=== PATIENT | male | born 1970 | race Caucasian/White ===

== ENCOUNTER 2017-12-19 07:05 | Day surgery (SDC) | payer OTHER ==
[~2017-12-19] VITALS: Ht 182.9 cm; Wt 88.5 kg
--- NOTE | ~2017-12-19 | O ---
[facility] [place] [address] OPERATIVE REPORT Name: BURTON THOMAS Room #: DEP [facility]..#: [id number] Admission: 12/19/17 Attend Phys: Victorino Chand MD Discharge: 12/19/17 Date of : 70 Report #: [id number] THIS REPORT FOR: //name// CC: Kervin Chand DATE OF SERVICE: 12/19/2017 PATIENT OF: Dr. Victorino Chand, Dr. Kervin Hopkins, and Dr. [place] Velasquez. PREOPERATIVE DIAGNOSIS: Right inguinal hernia. POSTOPERATIVE DIAGNOSIS: Right inguinal hernia with right cord lipoma. PROCEDURE: Right inguinal hernia repair with Prolene hernia system mesh and excision of right cord lipoma. SURGEON: Victorino Chand MD ANESTHESIA: General. DESCRIPTION OF PROCEDURE: The patient was brought to the operating room and placed on operative table in the supine position. Sequential compression devices were in place for DVT prophylaxis. There was no indication for preoperative antibiotics. The patient underwent a general endotracheal anesthesia and the right inguinal area was prepped and draped in a sterile fashion. Skin and subcutaneous tissue were then infiltrated with 0.5% Marcaine. Right inguinal skin incision was then performed using #10 scalpel blade. Hemostasis obtained using electrocautery. Dissection was carried down through the subcutaneous tissue and the Ángela's fascia using the electrocautery. The external oblique fascia was then identified, incised with a knife and opened with the Metzenbaum scissors. The ilioinguinal nerve was identified, dissected free, injected with the local and preserved. The cord was then elevated and held into place with a Eolia drain. Cremasteric muscle fibers were then split in the direction of their fibers using a clamp and electrocautery. A cord lipoma was identified, dissected free, excised and sent as specimen to pathology. There was no evidence of any indirect inguinal hernia sac. The floor was then inspected and there was a small to moderate size direct inguinal hernia defect. The hernia sac was then incised just above the level of floor using the electrocautery and then reduced back through the floor. An extended Prolene hernia system mesh was then inserted through the floor and the underlay patch was then deployed into the preperitoneal space. The floor was then tightened around the connector using a running 2-0 Prolene two layer shouldice repair. The overlay patch was then deployed in the inguinal canal and the mesh [address] [address] OPERATIVE REPORT Name: BURTON THOMAS Room #: DEP [facility].#: [id number] Admission: 12/19/17 Attend Phys: Victorino Chand MD Discharge: 12/19/17 Date of : 70 Report #: [id number] was secured at the pubic tubercle using the same running 2-0 Prolene suture. The mesh was then secured superiorly and at the connector using simple interrupted 2-0 Vicryl suture and the mesh was then split, wrapped around the cord, secured to the inguinal ligament with simple interrupted 2-0 Vicryl suture. The cord and the ilioinguinal nerve were then returned to the canal intact. The external oblique fascia was then closed using running 2-0 Vicryl suture. Ángela's fascia was then reapproximated using 3 simple interrupted 2-0 chromic sutures and the skin then closed with a running 4-0 subcuticular Vicryl stitch. The wound was then dressed with Mastisol, 1/2-inch Steri-Strips cut in half, Telfa, 4 x 4 gauze, sponge and tape. The patient was then awakened from the general anesthesia and taken to recovery room in good condition. Estimated blood loss was less than 10 mL and the patient tolerated the procedure well. All sponge, lap and instrument counts correct times 2. <ELECTRONICALLY SIGNED> By: Victorino Chand MD 12/24/17 1011 [id number] [id number] Victorino Chand MD /nt
--- NOTE | ~2017-12-19 | S ---
[facility] [address] [place] [address] SURGICAL PATH RPT PROCEDURE Name: BURTON THOMAS Room #: DEP [facility]#: [id number] Admission: 12/19/17 Date of : 70 Discharge: 12/19/17 Report #: [id number] Path Case #: [id number] PATHOLOGY REPORT DRAFT COLLECTION DATE: 12/19/2017 RECEIVED DATE: 12/19/2017 SPECIMEN(S) RECEIVED: A.Right cord lipoma
[~2017-12-19 07:05] MED LIST: CYMBALTA60 MG PO; VIIBRYD40 MG PO
[2017-12-19 13:21] VITALS: BP 155/98
[2017-12-19] MEDS ORDERED: HYDROCODONE-AP1 EAC6 PO (14:10)
[2017-12-19 15:59] VITALS: BP 155/98
== END 2017-12-19 16:55 | disposition home or self-care (01) ==
LOC: OR 07:05 → TBA 07:05 → OR 14:36
DX: K40.90 Unilateral inguinal hernia, without obstruction or gangrene, not specified as recurrent (principal); D17.6 Benign lipomatous neoplasm of spermatic cord; F32.9 Major depressive disorder, single episode, unspecified; F41.9 Anxiety disorder, unspecified; Z98.890 Other specified postprocedural states; Z79.891 Long term (current) use of opiate analgesic
CPT/HCPCS: 50010; 50101; 50386; 50417; 54111; 56524; 56525; 56526; 56528; 62110; 62900; 70005

== ENCOUNTER → 2020-05-19 | Outpatient (CLI) | payer OTHER ==
[~2020-05-19] MED LIST changes: +ALPRAZOLAM 0.50.5 M1 PO; +HYDROCODONE-AP1 EAC6 PO; +LISINOPRIL20 MG PO
== END ==
LOC: LAB 08:59
PROVIDERS: ATTEND Surgery
DX: Z01.812 Encounter for preprocedural laboratory examination (principal); Z20.828 Contact with and (suspected) exposure to other viral communicable diseases

== ENCOUNTER 2020-05-24 06:02 | Day surgery (SDC) | payer OTHER ==
[~2020-05-24] VITALS: Ht 182.9 cm; Wt 88.5 kg
[2020-05-24 06:50] VITALS: BP 130/91
--- NOTE | 2020-05-24 09:32 | H ---
[facility] [place] [address] HISTORY AND PHYSICAL Name: BURTON THOMAS Room #: 150-1 [facility]..#: [id number] Admission: 05/24/20 Attend Phys: Victorino Chand MD Discharge: Date of : 70 Report #: [id number] THIS REPORT FOR: cc: Kervin Hopkins Louis D. DO Franey, Thomas A. MD ~ CC: Kervin Chand DATE OF SERVICE: 05/24/2020 SURGERY ADMISSION HISTORY AND PHYSICAL PATIENT OF: Dr. Kervin Hopkins and Dr. [place] Velasquez. CHIEF COMPLAINT: Abdominal bulge. HISTORY OF PRESENT ILLNESS: The patient is a 50-year-old male who for about a year and a half has noticed a bulge in his umbilicus. He stated he notices it more when he works out. He does have some pain with physical activity. No changes in bowel or bladder habits. He saw his primary care physician, Dr. Hopkins who recommended surgical consultation. PAST MEDICAL HISTORY: Depression, anxiety and umbilical hernia, vasectomy in 2008, right inguinal hernia repair with Prolene mesh and excision of cord lipoma in 11/2017. MEDICATIONS: Cymbalta and Viibryd. ALLERGIES: No known drug allergies. FAMILY HISTORY: Noncontributory. SOCIAL HISTORY: The patient is , does not smoke, drinks alcohol occasionally. 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 REVIEW OF SYSTEMS: Pertinent positives as above. Full review of systems otherwise negative. PHYSICAL EXAMINATION: GENERAL: Well-developed, well-nourished male in no acute distress. VITAL SIGNS: Stable. He is afebrile. Height 73 inches, weight is 202 pounds, BMI of 26.6. HEENT: Unremarkable. LUNGS: Clear to auscultation bilaterally. Normal excursion. CARDIOVASCULAR: Regular rate and rhythm. No murmurs, S3 or S4, no PMI. [facility] [place] [address] HISTORY AND PHYSICAL Name: BURTON THOMAS Room #: [address] [place] [address].#: [id number] Admission: 05/24/20 Attend Phys: Victorino Chand MD Discharge: Date of : 70 Report #: [id number] ABDOMEN: Soft, flat and nontender. No palpable masses, no organomegaly. There is an umbilical hernia. No abdominal incision scars. EXTREMITIES: No clubbing, cyanosis or edema. NEUROLOGIC: Intact with a clear mental status. No focal motor or sensory deficits. IMPRESSION: A 50-year-old male with an umbilical hernia. I fully discussed with the patient the diagnosis, prognosis and treatment options. I am recommending an umbilical hernia repair. He states he understands and agrees to proposed surgery. PLAN: We will perform an umbilical hernia repair under local IV sedation as an outpatient at [facility]. The procedure and its risks, benefits and possible complications were fully discussed with the patient. He states he understands and agrees to proposed surgery. <ELECTRONICALLY SIGNED> By: Victorino Chand MD 05/24/20 0932 1154 1204 Victorino Chand MD /nt
[2020-05-24] MEDS ORDERED: LORCET 5-325 M1 EACH PO (09:38)
[2020-05-24 09:51] VITALS: BP 130/91
--- NOTE | 2020-05-24 12:30 | O ---
[facility] [place] [address] OPERATIVE REPORT Name: BURTON THOMAS Room #: 150-1 [facility]#: [id number] Admission: 05/24/20 Attend Phys: Victorino Chand MD Discharge: Date of : 70 Report #: [id number] THIS REPORT FOR: cc: Kervin Hopkins Louis D. DO Franey, Thomas A. MD ~ CC: Kervin Barker DATE OF SERVICE: 05/24/[address] Kervin Hopkins, Dr. Victorino Chand and Dr. [place] Velasquez. PREOPERATIVE DIAGNOSIS: Incarcerated umbilical hernia. POSTOPERATIVE DIAGNOSIS: Incarcerated umbilical hernia. PROCEDURE: Repair of an incarcerated umbilical hernia. SURGEON: Victorino Chand M.D. ANESTHESIA: Local IV sedation. DESCRIPTION OF PROCEDURE: The patient was brought to the operating room and placed on operative table in the supine position. Sequential compression devices were in place for DVT prophylaxis. There was no indication for preoperative antibiotics. The patient underwent IV sedation. The abdomen was then prepped and draped in a sterile fashion. Skin and subcutaneous tissue were then infiltrated around this incarcerated hernia using the 0.5% Marcaine and 1% Xylocaine with epinephrine. A transverse supraumbilical skin incision was then performed using #15 scalpel blade. Hemostasis obtained using electrocautery. Dissection was carried down to the incarcerated hernia and hernia sac. This was all dissected free and reduced back through the fascial defect into the preperitoneal and peritoneal space. The fascial defect was fairly small, about the size of the tip of the index finger. This was easily closed with 2 interrupted [id number] #1 Prolene sutures. The umbilicus was then tacked to the fascia using 2-0 chromic suture. Deep and superficial subcutaneous tissue was then reapproximated using simple interrupted 2-0 chromic sutures and the skin then closed with a running 4-0 subcuticular Vicryl stitch. The wound was then dressed with Dermabond, Telfa, 4 x 4 gauze, sponge and tape. The patient was then taken to the recovery room awake, alert and in good condition. [address] [address] OPERATIVE REPORT Name: BURTON THOMAS Room #: 150-1 [facility]..#: [id number] Admission: 05/24/20 Attend Phys: Victorino Chand MD Discharge: Date of : 70 Report #: [id number] Estimated blood loss was approximately 5 mL and the patient tolerated procedure well. All sponge, lap and instrument counts correct x 2. <ELECTRONICALLY SIGNED> By: Victorino Chand MD 05/24/20 1230 0936 1021 Victorino Chand MD /nt
== END 2020-05-24 10:05 | disposition home or self-care (01) ==
LOC: OR 06:02 → TBA 06:03 → OR 09:24
PROVIDERS: ATTEND Surgery
DX: K42.0 Umbilical hernia with obstruction, without gangrene (principal); I10 Essential (primary) hypertension; F32.9 Major depressive disorder, single episode, unspecified; F41.9 Anxiety disorder, unspecified; Z98.890 Other specified postprocedural states; Z79.899 Other long term (current) drug therapy; Z98.52 Vasectomy status
CPT/HCPCS: 50010; 50101; 50386; 50417; 54118; 56524; 56525; 56526; 62110; 62850; 70005